=== PATIENT | female | born 1975 | race Caucasian/White ===

== ENCOUNTER → 2016-12-28 | Outpatient (CLI) | payer OTHER ==
[~2016-12-28] MED LIST: COUMADIN5 MG PO; LORTAB 7.5-5001 TAB PO; LOVENOX80 MG/0.8 INJ; PHENERGAN25 M1 DOB; TAMOXIFEN CITRA20 MG PO; TOPROL XL PO; XANAX0.5 MG PO; ZOLOFT100 MG PO
--- NOTE | ~2016-12-28 | CT55 ---
[facility] A Service of [facility] RADIOLOGY TEXT RESULTS PATIENT: TERRY RADFORD LOCATION: [facility] : 71 UNIT #: [id number] AGE: [address]: Demetri Franklin MD SEX: F ORDER DR: [id number] [facility] [address] [place], [place] [address] [id number] O MR#: [id number] Acc #: [id number] NAME: TERRY RADFORD. : 1975 SEX: F STUDY DATE/TIME: 12/28/2016 13:21 UNIT: [facility] ROOM: STUDY DESCRIPTION: CT Chest W Con Attending Physician: Demetri Franklin M.D. Referring Physician: Demetri Franklin M.D. Ordering Physician: Demetri Franklin M.D. Primary Care Physician: Cristela Brown M.D. MEDICAL IMAGING REPORT This report is preliminary unless electronic signature is present EXAM CT chest with contrast. DATE OF EXAM 12/28/2016 INDICATIONS Breast cancer restaging. Observation for metastatic disease. PROCEDURE Contrast-enhanced CT of the chest. 100 mL of Isovue-370. COMPARISON 01/18/2016 TECHNIQUE NOTE: This CT exam was performed with one or more of the following radiation dose reduction techniques: automatic exposure control, adjustment of mA and/or kV according to patient size, and iterative reconstruction. FINDINGS No suspicious pulmonary nodule. Rounded atelectasis posterior left lower lobe is stable. No pleural fluid or pneumothorax. Posterior left lower lobe pleural thickening is unchanged. No adenopathy in the chest. Sclerosis in the sternum is unchanged. No new bone lesion. IMPRESSION No evidence for metastatic disease in the chest. Findings detailed above are not significantly changed from the previous study. Dictated by... [facility] A Service [facility] RADIOLOGY TEXT RESULTS PATIENT: TERRY RADFORD LOCATION: [facility] : 71 UNIT #: [id number] AGE: [address]: Demetri Franklin MD SEX: F ORDER DR: Jeremías Kaye M.D. THIS IS AN ELECTRONICALLY VERIFIED REPORT Jeremías Kaye M.D. at 12/29/2016 7:36 AM CONG/tequila TD: 12/28/2016 16:16 JOB #: [id number] MEDICAL IMAGING REPORT COPY
--- NOTE | ~2016-12-28 | CT2 ---
[facility] A Service of [facility] RADIOLOGY TEXT RESULTS PATIENT: TERRY RADFORD [facility] : 71 UNIT #: [id number] AGE: [address]: Demetri Franklin MD SEX: F ORDER DR: [id number] [facility] [address] [place], [place] [address] [id number] O MR#: [id number] Acc #: [id number] NAME: TERRY RADFORD : 1975 SEX: F STUDY DATE/TIME: 12/28/2016 13:21 UNIT: [facility] ROOM: STUDY DESCRIPTION: CT Abd and Pelv W Cont Attending Physician: Demetri Franklin M.D. Referring Physician: Demetri Franklin M.D. Ordering Physician: Demetri Franklin M.D. Primary Care Physician: Cristela Brown M.D. MEDICAL IMAGING REPORT This report is preliminary unless electronic signature is present EXAM CT abdomen and pelvis with contrast INDICATIONS Restaging breast cancer. Observation for metastatic disease. PROCEDURE Contrast-enhanced CT of the abdomen and pelvis. 100 mL of Isovue-370. COMPARISON 01/18/[address] exam was performed with one or more of the following radiation dose reduction techniques: automatic control, adjustment of mA and/or kV according to patient size, and iterative reconstruction. FINDINGS ABDOMEN WITH CONTRAST: Refer to the separately dictated chest CT for thoracic findings. ABDOMEN WITH CONTRAST: 4 mm enhancing focus lateral segment left hepatic lobe not clearly seen on the previous 2015 or 2014 CTs. It is indeterminate. No other liver lesion is seen. The spleen kidneys, adrenal glands, pancreas and gallbladder are unremarkable. Moderate colonic stool burden. No abdominal adenopathy. PELVIS WITH CONTRAST: No pelvic mass or adenopathy. No aggressive appearing bone lesion. IMPRESSION 1. No definite evidence for abdominal or pelvic metastatic disease. 2. There is a 4 mm early enhancing focus in the lateral segment of the [facility] A Service [facility] RADIOLOGY TEXT RESULTS PATIENT: TERRY RADFORD LOCATION: [facility] : 71 UNIT #: [id number] AGE: [address]: Demetri Franklin MD SEX: F ORDER DR: left hepatic lobe not clearly seen on previous studies. It may simply represent a small hemangioma and is seen currently because of differences in phase of enhancement. Recommend attention to this lesion on future followup studies. Dictated by... Jeremías Kaye M.D. THIS IS AN ELECTRONICALLY VERIFIED REPORT Jeremías Kaye M.D. at 12/29/2016 7:37 AM CONG/claudia TD: 12/28/2016 16:33 JOB #: [id number] MEDICAL IMAGING REPORT COPY
[2016-12-28 13:11] LABS: POC - CREATININE 0.82 mg/dL (0.44-1.03); POC - GFR >60.0 mL/min (>60)
== END | disposition home or self-care (01) ==
LOC: CCAT 12:05
PROVIDERS: Internal Medicine Hematology
DX: C50.419 Malignant neoplasm of upper-outer quadrant of unspecified female breast (principal); C79.51 Secondary malignant neoplasm of bone; Z79.01 Long term (current) use of anticoagulants
CPT/HCPCS: 71260; 74177; 82565; Q9967